=== PATIENT | female | born 1985 | race Caucasian/White ===

== ENCOUNTER 2017-01-10 04:23 | Inpatient (IN) | payer BC, OTHER ==
[~2017-01-10] VITALS: Ht 170.2 cm; Wt 96.0 kg
[~2017-01-10 04:23] MED LIST: ASCO10007; PREN1TAB73 PO
[2017-01-10] MEDS ORDERED: LIDOCAINE 1% (10mg/ml) 2ml SDV ID PRN (04:45)
[2017-01-10] MEDS ORDERED: OXYTOCIN 30 UNIT in D5LR 500 ML SCH (04:45)
[2017-01-10] MEDS ORDERED: CALCIUM CARBONATE 500mg Chewable TAB PO PRN (04:45)
[2017-01-10] MEDS ORDERED: MAG-AL + SIM LIQUID 30 ML UDC PO PRN (04:45)
[2017-01-10] MEDS ORDERED: ACETAMINOPHEN 500 MG TABLET PO PRN (04:45)
[2017-01-10] MEDS ORDERED: AMPICILLIN 2 G in NORMAL SALINE 100 ML IV ONE (05:00)
[2017-01-10] MEDS: LR 1,000 ML IV PRN ×2 (05:17→09:15)
[2017-01-10] MEDS ORDERED: D5LR 1,000 ML IV PRN (05:30)
[2017-01-10 05:40] VITALS: BP 127/62; PULSE 64; RESP 18; TEMP 97.9; O2SAT 97
[2017-01-10 05:44] LABS: HCT - HEMATOCRIT 35.6 % (36-46); MEAN CORPUSCULAR HGB 31.1 UUG (26-34); MEAN CORPUSCULAR HGB CONC(MCHC 33.7 GM/DL (31-37); MEAN CORPUSCULAR VOLUME 92.2 UM3 (80-100); MEAN PLATELET VOLUME 11.9 UM3 (9.4-12.4); RED BLOOD COUNT 3.86 M/MM3 (4.00-5.20); WBC - WHITE BLOOD COUNT 8.4 T/MM3 (4.5-11.0)
--- NOTE | 2017-01-10 05:47 | ANESOB ---
Epidural/ Date/Time DATE: 01/10/17 TIME: 05:44 Preop Diagnosis , SROM at 2 am 40 1/7 weeks Procedure: Labor Epidural Plan: Epidural Height: 5 ' 7.00 " Weight: kg BMI: kg/m2 NPO since: 0300 P:0 Heart Rate: 145 Medications & Allergies Inpatient Medications Current Medications Medications (Trade) Dose Ordered Sig/Guy Start Time Stop Time Status Last Admin Dose Admin Lidocaine HCl 0.2 mg 0.2 mg PRN PRN 01/10/17 04:45 UNV Lactated Ringer's (Lactated Ringers) 1,000 ml @ 0 mls/hr Q0M PRN 01/10/17 04:40 UNV 01/10/17 05:17 999 MLS/HR Acetaminophen (Tylenol Extra Strength) 1-2 TABS = 500-1,000 MG Q4H PRN 01/10/17 04:45 UNV Al Hydroxide/Mg Hydroxide (Maalox) 30 ml Q4H PRN 01/10/17 04:45 UNV Calcium Carbonate 1-2 TABS Q2H PRN 01/10/17 04:45 UNV Ampicillin Sodium 1 g/Sodium Chloride 100 ml @ 200 mls/hr Q4H 01/10/17 09:00 UNV Dextrose/Lactated Ringer's 1,000 ml @ 0 mls/hr Q0M PRN 01/10/17 05:30 UNV 01/10/17 05:33 123 MLS/HR Oxytocin/Dextrose/ Lactated Ringer's (Pitocin/D5lr) 503 ml @ 0 mls/hr Q0M 01/10/17 04:45 UNV 01/10/17 05:34 2 MLS/HR Ascorbic Acid (Vitamin C) 1,000 Mg Tablet, (Reported) Last Taken: on 12/27/16 0700 Pnv95/Ferrous Fumarate/FA ( Tablet) 1 Each Tablet, 1 TAB PO DAILY, (Reported) Last Taken: on 12/27/16 0700 Coded Allergies: clarithromycin (Verified Allergy, Intermediate, RASH, 12/27/16) Medical/Surgical History Anesthesia PMH: Reports: Anesthesia Reactions (nausea), Other (scoliosis), Denies: *Diabetes, Malignant Hyperthermia Smoking Status: Never smoker Does patient use chewing tobac: No Second Hand Exposure: No Substance Use Type: does not use Alcohol Intake: none Anesthesia Adverse Reactions: FOUND none Family Hx of Anesthesia Advers: none Hx of Motion Sickness: No Complications During : No Pertinent Findings Laboratory Tests 01/10/17 05:12 Physical Exam Respiratory: Bilat breath sounds equal, Lungs clear Cardiovascular: Regular rate, rhythm Airway Assessment Mallampati Score: II TMD: 3 Fingerbreadths Neck Extension: Good Overall Assessment: No Airway Concerns ASA: 2 Discussion Discussed risks/options/alternatives of anesthesia. Patient consents. Nursing pain assessment noted. Present for Discussion: Present: Family Member Attestation Statement Prior to the delivery of any anesthetic medication, I examined the patient, developed the plan, obtained the patient's consent and discussed the risk and benefits of the procedure with the patient/guardian. If the note happens to be signed after anesthesia start time, it is only due to providing efficient care of the patient and documenting at a time when the computer is available. MONSE LE CRNA January 10, 2017 05:47
[2017-01-10] MEDS ORDERED: ONDANSETRON 4mg/2ml INJECTION IV PRN (08:45)
[2017-01-10] MEDS ORDERED: NALOXONE 0.4mg/ml INJECTION IV PRN ×2 (08:45→11:30)
[2017-01-10] MEDS ORDERED: DiphenhydrAMINE 50 MG/ML INJECTION IV PRN (08:45)
[2017-01-10] MEDS ORDERED: ROPIVACAINE 1% 200 MG, SUFENTANIL 50 MCG in NORMAL SALINE 80 ML EPI PRN (08:45)
[2017-01-10] MEDS ORDERED: AMPICILLIN 1 G in NORMAL SALINE 100 ML IV SCH (09:00)
[2017-01-10] MEDS ORDERED: CITRIC ACID/SODIUM CITRATE 30 ML PO ONE (09:45)
[2017-01-10] MEDS ORDERED: AZITHROMYCIN 500 MG in NORMAL SALINE 250 ML IV ONE (09:45)
[2017-01-10] MEDS ORDERED: CEFAZOLIN 2 GM in D5W 50ml 2 GM in D5W 50 ML IV ONE ×2 (09:45)
[2017-01-10] MEDS ORDERED: FAMOTIDINE 20mg IVPB 50 ML IV ONE (09:45)
[2017-01-10] MEDS ORDERED: LIDOCAINE 2%/EPI 1:200,000 20ml SDV ONE (10:01)
[2017-01-10] MEDS ORDERED: SALINE FLUSH 10ml SYRINGE ONE (10:02)
[2017-01-10] MEDS ORDERED: EPHEDRINE SULFATE 50mg/ml INJECTION ONE (10:02)
[2017-01-10] MEDS ORDERED: MORPHINE SULFATE PF 5mg/10ml VL (DURAMORPH) ONE (10:59)
[2017-01-10] MEDS ORDERED: CLINDAMYCIN 600mg IVPB 50 ML IV ONE (11:00)
[2017-01-10] MEDS ORDERED: ONDANSETRON 4mg/2ml INJECTION ONE (11:02)
[2017-01-10] MEDS ORDERED: HYDROCORTISONE 2.5% CREAM 30 GM RECTALLY PRN (11:15)
[2017-01-10] MEDS ORDERED: MILK OF MAGNESIA 30 ML SUSP PO PRN (11:15)
[2017-01-10] MEDS ORDERED: OXYTOCIN 30 UNIT in D5LR 500 ML IV SCH (11:15)
[2017-01-10] MEDS ORDERED: DiphenhydrAMINE 25 MG CAPSULE PO PRN (11:15)
[2017-01-10] MEDS: D5LR 1,000 ML IV SCH ×2 (11:24→17:19)
[2017-01-10] MEDS ORDERED: NALBUPHINE 10mg/ml INJECTION IV PRN (11:30)
[2017-01-10] MEDS ORDERED: METOCLOPRAMIDE 10mg/2ml INJECTION IV PRN (11:30)
[2017-01-10] MEDS ORDERED: LR 1,000 ML IV SCH (12:15)
[2017-01-10] MEDS ORDERED: NOZIN NASAL SWAB NS PRN (14:15)
[2017-01-10] MEDS: IBUPROFEN 800 MG TABLET PO PRN ×2 (14:18→22:28)
[2017-01-10] MEDS: SIMETHICONE 80 MG CHEWABLE TABLET PO CHEW SCH ×3 (14:19→22:28)
--- NOTE | 2017-01-10 14:54 | NUR ---
Epidural Epidural catheter removed without complications, tip intact, no S/S of infection noted. Area cleansed with alcohol, betadine and covered with a bandaid. Pt. educated about S/S of infection and to call doctor with concerns.
--- NOTE | 2017-01-10 15:56 | ANESPO ---
Post-Op Note Date 01/10/17 Time: 15:55 Status Pt Participated in Evaluation: Pt participated in person Vital Signs Date Time Temp Pulse Resp B/P Pulse Ox O2 Delivery O2 Flow Rate FiO2 01/10/17 05:40 97.9 64 18 127/62 97 Room Air Respiratory Function: Airway patent, Regular respirations Cardiovascular Function: Regular pulse Mental Status: Alert/oriented Pain Level Intensity: 3 Hydration: Taking po fluids Complications during Recovery None apparent Follow-Up Instructions Instructions Per Surgeon MILTON SULLIVAN CRNA January 10, 2017 15:56
[2017-01-10 16:00] VITALS: BP 119/69; PULSE 62; RESP 16; TEMP 97.6; O2SAT 99
[2017-01-10] MEDS ORDERED: NOZIN NASAL SWAB NS ONE (16:15)
--- NOTE | 2017-01-10 16:57 | PNPDOC ---
Progress Note PPD0 Rubella: Immune GBS: Positive Blood Type:O pos Subjective 01/10/17 Lochia: Minimal Pain: Controlled Voiding: Wang still in Place Objective Vital Signs Date Time Temp Pulse Resp B/P Pulse Ox O2 Delivery O2 Flow Rate FiO2 01/10/17 05:40 97.9 64 18 127/62 97 Room Air Urine Output: Good General: Alert and Oriented Assessment (1) Status post primary low transverse section Plan: Routine Care ANDRES AZEVEDO MD January 10, 2017 16:57
[2017-01-10 17:21] LABS: HCT - HEMATOCRIT 31.8 % (36-46); HGB - HEMOGLOBIN 10.5 GM/DL (12-16); MEAN CORPUSCULAR HGB 30.5 UUG (26-34); MEAN CORPUSCULAR VOLUME 92.4 UM3 (80-100); MEAN PLATELET VOLUME 11.9 UM3 (9.4-12.4); RED BLOOD COUNT 3.44 M/MM3 (4.00-5.20); WBC - WHITE BLOOD COUNT 13.4 T/MM3 (4.5-11.0)
[2017-01-10 18:10] VITALS: O2SAT 91
[2017-01-10] MEDS ORDERED: ONDANSETRON 4mg/2ml INJECTION IV ONE (19:15)
[2017-01-10 20:00] VITALS: BP 111/67; PULSE 68; RESP 16; TEMP 98.3; O2SAT 100
--- NOTE | 2017-01-10 22:31 | OPNOTEF ---
DATE OF OPERATION January 10, 2017 PREOPERATIVE DIAGNOSES 1. 31-year-old 1 at 40 weeks 1 day gestational age. 2. Breech presentation. 3. Rupture of membranes. POSTOPERATIVE DIAGNOSES 1. 31-year-old 1 at 40 weeks 1 day gestational age. 2. Breech presentation. 3. Rupture of membranes. PROCEDURE Primary low transverse section. SURGEON Dr. Yesenia Arias [employer] Dr. Lucho Toledo ANESTHESIA Epidural. ANESTHESIOLOGIST Deion Moralez CRNA COMPLICATIONS None. ESTIMATED BLOOD LOSS 800 mL. FINDINGS Viable female infant, timothy breech presentation, clear fluids. Apgars 6/9. Weight 3654 g. Name "Viridiana." Normal-appearing uterus, tubes and ovaries. INDICATIONS The patient presented to Maternal/Child with rupture of membranes overnight. She was started on Pitocin. She received an epidural. Prior to the epidural her cervix was closed and firm consistent with a previous cervical procedure. My plan was to do cervical ripening. Due to the high station and closed cervix, a bedside sonogram was done which showed breech presentation. A cervical check at this time revealed her cervix was 2/90 and with the breech palpated. She was consented for section. A Wang catheter was already in place. NARRATIVE OF PROCEDURE The patient was taken back to the operating room where her epidural was brought up to adequate surgical levels. She was prepared and draped in the normal sterile fashion. A Pfannenstiel incision was created and carried down to the fascia. The fascia was incised in the midline and extended laterally with the Gann scissors. The fascia was elevated and the underlying rectus muscles were dissected off. The peritoneum was entered bluntly. This was extended superiorly and inferiorly with good visualization of the bladder. The bladder blade was inserted. A bladder flap was created sharply and the bladder blade was reinserted. The low uterine segment was incised in a transverse fashion layer by layer with a scalpel and bluntly extended. The breech was delivered atraumatically. The legs were delivered. The arms were swept down and out. The infant's body was delivered and the head delivered easily. The nose and mouth were suctioned. The cord was clamped and cut. The infant was handed to Dr. Barrios who was asked to attend due to the breech delivery. The placenta delivered spontaneously. The uterus was exteriorized and cleared of all clots and debris. The uterine incision was closed with running locked 0- Monocryl. A [id number] of 2-0 chromic was placed on each end for hemostasis. The uterus was returned to the abdomen. The gutters were cleared of all clots and debris. The uterine incision was inspected one final time and still noted to be hemostatic. The peritoneum was closed with running 2 -0 Vicryl. Hemostasis was obtained in the rectus muscles with cautery. The fascia was then closed with running 0-Vicryl. Hemostasis was obtained in the subcutaneous tissue with cautery. The skin was closed with 4-0 Vicryl in a subcuticular manner. Steri-Strips were placed. Sharp, sponge and instrument counts were correct. The patient tolerated the procedure well and was taken to the recovery room in good condition. SARAH
[2017-01-10 23:00] VITALS: BP 110/65; PULSE 56; RESP 16; TEMP 98.5; O2SAT 96
--- NOTE | 2017-01-11 02:16 | NUR ---
Shift summary: VSS. Fundus is firm, midline with small bleeding. Incision dressing is dry and intact. Pt. is using an abdominal binder. D5LR continues to run @ 100 ml/hr through IV in left hand. Pt. had intermittent nausea last evening. Zofran 4 mg was given. Pt. has denied nausea for the last several hours. Tolerating fluids. Pt. had a clear liquid tray last evening. Wang catheter patent and draining with adequate output. Pericare provided at 2300. Pt. also dangled and stood at bedside at that time. Bilateral thigh high SCD's pumping and pulse oximeter is on. Pain controlled with Ibuprofen 800 mg. supportive and at bedside.
[2017-01-11 03:00] VITALS: BP 104/63; PULSE 60; RESP 16; TEMP 98; O2SAT 100
[2017-01-11] MEDS: NOZIN NASAL SWAB NS SCH ×3 (06:41→18:01)
[2017-01-11] MEDS: HYDROCODONE/APAP 5 mg/325 mg TABLET PO PRN ×4 (06:42→22:41)
[2017-01-11 07:00] VITALS: BP 110/70; PULSE 62; RESP 16; TEMP 98; O2SAT 98
[2017-01-11] MEDS: D5LR 1,000 ML IV SCH (07:15)
--- NOTE | 2017-01-11 08:25 | PNPDOC ---
RAYRAY DAVIS APRN 01/11/17 0824: Progress Note PPD1 Rubella: Immune GBS: Positive Blood Type:O pos Subjective 01/11/17 Lochia: Moderate Pain: Controlled Voiding: Voiding, Wang still in Place Nausea and Vomiting: No Nausea/Vomiting Objective VSS AF Vital Signs Date Time Temp Pulse Resp B/P Pulse Ox O2 Delivery O2 Flow Rate FiO2 01/11/17 03:00 98.0 60 16 104/63 100 Room Air General: Alert and Oriented Abdomen: Fundus Firm Incision: Clean/Dry/Intact Extremities: Non-tender Edema: None Assessment Primary C/S (1) Status post primary low transverse section Plan: Routine Care Plan Routine Care ANDRES AZEVEDO MD 01/11/17 1023: Progress Note Objective Laboratory Item Value Date Time Hemoglobin 10.5 GM/DL L # 01/10/17 1615 Plan Patient seen, and I agree with Rayray's note. Wang was removed. RAYRAY DAVIS APRN January 11, 2017 08:24 ANDRES AZEVEDO MD January 11, 2017 10:23
[2017-01-11] MEDS: DOCUSATE CALCIUM 240 MG CAPSULE PO SCH (09:24)
[2017-01-11] MEDS: SIMETHICONE 80 MG CHEWABLE TABLET PO CHEW SCH ×4 (09:25→22:39)
[2017-01-11] MEDS: IBUPROFEN 800 MG TABLET PO PRN ×2 (09:25→18:02)
[2017-01-11 11:30] VITALS: BP 114/67; PULSE 71; RESP 16; TEMP 98.3; O2SAT 100
[2017-01-11 17:30] VITALS: BP 124/68; PULSE 64; RESP 16; TEMP 98.4; O2SAT 100
[2017-01-11 22:30] VITALS: BP 119/68; PULSE 68; RESP 68; TEMP 96.9; O2SAT 96
[2017-01-12] MEDS: NOZIN NASAL SWAB NS SCH ×3 (01:32→18:06)
[2017-01-12] MEDS: IBUPROFEN 800 MG TABLET PO PRN ×3 (02:13→20:23)
--- NOTE | 2017-01-12 03:05 | NUR ---
Chart Check 24 hour chart check completed
--- NOTE | 2017-01-12 03:05 | NUR ---
Shift summary Pt doing own cares post op c/s. VSS, voiding without difficulty, reports vaginal bleeding minimal. Requests pain meds as ordered with relief reported. Wearing abdominal binder. Ambulating in hallways. Doing well with nursing with use of nipple shield. Eating and drinking well. Will continue to monitor per POC.
[2017-01-12] MEDS: HYDROCODONE/APAP 5 mg/325 mg TABLET PO PRN ×5 (03:38→22:22)
[2017-01-12 07:30] VITALS: BP 116/69; PULSE 55; RESP 16; TEMP 97.7; O2SAT 98
--- NOTE | 2017-01-12 08:36 | PNPDOC ---
Progress Note PPD2 Rubella: Immune GBS: Positive Blood Type:O pos Subjective 01/12/17 Lochia: Minimal Pain: Controlled Feeling better than yesterday. Voiding: Voiding Baby is on the bili blanket. Objective Vital Signs Date Time Temp Pulse Resp B/P Pulse Ox O2 Delivery O2 Flow Rate FiO2 01/12/17 07:30 97.7 55 16 116/69 98 01/11/17 03:00 Room Air Urine Output: Good General: Alert and Oriented Abdomen: Fundus Firm, Non-tender Incision: Clean/Dry/Intact, No Erythema Extremities: Tender Assessment (1) Status post primary low transverse section Plan: Routine Care, Continue PNV Plan Home today or tomorrow depending on baby. ANDRES AZEVEDO MD January 12, 2017 08:36
[2017-01-12] MEDS ORDERED: IBUP-1547 PO (08:37)
[2017-01-12] MEDS ORDERED: HYDR-4246 PO (08:37)
[2017-01-12] MEDS: DOCUSATE CALCIUM 240 MG CAPSULE PO SCH (12:04)
[2017-01-12] MEDS: SIMETHICONE 80 MG CHEWABLE TABLET PO CHEW SCH ×4 (12:30→22:22)
[2017-01-12 14:30] VITALS: BP 118/86; PULSE 61; RESP 16; TEMP 98.1
[2017-01-12 22:26] VITALS: BP 121/74; PULSE 79; RESP 18; TEMP 97.8; O2SAT 99
[2017-01-13] MEDS: NOZIN NASAL SWAB NS SCH ×2 (01:00→09:00)
--- NOTE | 2017-01-13 02:46 | NUR ---
Shift Summary Pt's VS stable. Pt reports minimal lochia and voiding w/o difficulty. Incision open to air, approximated, asymptomatic, and steri strips intact. Pt tolerating po fluids and regular diet. Pain controlled with po pain meds as ordered, Motrin and Brawley. Pt up ad nita in room. Abdominal binder on. Pt attentive to infant needs and bonding appropriately. Call pollock in reach. Will continue to monitor per plan of care.
--- NOTE | 2017-01-13 02:46 | NUR ---
Chart Check 24 hour chart check completed
[2017-01-13] MEDS: HYDROCODONE/APAP 5 mg/325 mg TABLET PO PRN ×3 (02:59→13:14)
[2017-01-13 05:15] VITALS: BP 120/67; PULSE 65; RESP 16; TEMP 97.8; O2SAT 100
--- NOTE | 2017-01-13 08:23 | PNPDOC ---
Progress Note PPD3 Rubella: Immune GBS: Positive Blood Type:O pos Subjective 01/13/17 Lochia: Minimal Pain: Controlled Objective Vital Signs Date Time Temp Pulse Resp B/P Pulse Ox O2 Delivery O2 Flow Rate FiO2 01/13/17 05:15 97.8 65 16 120/67 100 Room Air Incision: Clean/Dry/Intact, No Erythema Assessment (1) Status post primary low transverse section Plan: Routine Care, Discharge Home, Continue PNV ANDRES AZEVEDO MD January 13, 2017 08:23
[2017-01-13] MEDS: IBUPROFEN 800 MG TABLET PO PRN (08:58)
[2017-01-13] MEDS: SIMETHICONE 80 MG CHEWABLE TABLET PO CHEW SCH (08:58)
[2017-01-13] MEDS: DOCUSATE CALCIUM 240 MG CAPSULE PO SCH (08:59)
== END 2017-01-13 14:22 | disposition home or self-care (01) | DRG 766 ==
LOC: OBOBS 04:23 → MC 04:23 → OBOBS 04:35 → MC 04:38
PROVIDERS: ADMIT Obstetrics & Gynecology; ATTEND Obstetrics & Gynecology
PROC: 3E033VJ Introduction of Other Hormone into Peripheral Vein, Percutaneous Approach (ICD-10-PCS; 2017-01-10)
PROC: 10D00Z1 Extraction of Products of Conception, Low, Open Approach (ICD-10-PCS; principal; 2017-01-10 10:40)
DX: O32.1XX0 Maternal care for breech presentation, not applicable or unspecified (principal); O48.0 Post-term pregnancy; O99.824 Streptococcus B carrier state complicating childbirth; O34.43 Maternal care for other abnormalities of cervix, third trimester; N88.8 Other specified noninflammatory disorders of cervix uteri; Z3A.40 40 weeks gestation of pregnancy; Z37.0 Single live birth
CPT/HCPCS: 36415; 84112; 85027; 86850; 86900; 86901; 99464